=== PATIENT | male | born 1960 | race Caucasian/White ===

== ENCOUNTER 2019-12-19 04:59 | Observation (INO) ==
--- NOTE | 2019-12-13 13:11 | Anesthesiology Consultation ---
Date of Service December 13, 2019 Assessment & Plan (1) Encounter for pre-operative examination: Chart Review Chart Review: Acceptable Risk for Surgery and Patient seen in Pre Admission Testing Teaching & Discussion Pre-Anesthesia Teaching/Discussion Notes: Instructed NPO after midnight before surgery,except medications with 15 cc of water. Medication instructions provided according to the PAT guidelines. History Surgery Operation Date: 12/19/19 12:30 Proposed Procedures p Right Total Knee Arthroplasty - Aaron Gu MD Height/Weight Height: 5 ft 10 in Weight: 96.8 kg Allergies Allergy/AdvReac Type Severity Reaction Status Date / Time No Known Drug Allergies Allergy Unknown . Verified 12/12/19 10:35 Medications Home Medications Medication Instructions Recorded Confirmed Last Taken No Known Home Medications 12/12/19 12/12/19 Unknown Past Medical History Medical History DJD (degenerative joint disease) Kidney stones Obesity Osteoarthritis Exercise / Class Metabolic Activity II 4-5 Yardwork/Stairs/Walk up hill Past Surgical History Surgical History History of colonoscopy History of lithotripsy Hx of hernia repair Hx of LASIK Past Anesthesia History No Hx of Anesthesia Complications and No Family Hx of Anesthesia Complications History of PONV No Hx of PONV and No Hx of Motion Sickness Social History Smoking Status: Never smoker Do You Dip or Chew Tobacco: No (QUIT 6 MONTHS AGO) Hx Alcohol Use: Yes Alcohol type: beer and hard liquor alcohol intake frequency: a few times a month Hx Substance Use: No substance use type: does not use Review of Systems Patient denies chest pain, shortness of breath, dyspnea on exertion, cough, wheezing, palpitations. Physical Exam Vital Signs VITALS BP 146/80 P 86 TEMP 97.7 SP02 94%RA RESP 18 PHYSICAL Full neck and c-spine range of motion. Full TMJ range of motion. TMD 4 finger breaths Mallampati Score 2 Dentition: intact, crown on molar Lungs: clear throughout to auscultation Cardiac: regular rate and rhythm, no murmurs noted Spine: normal Carotid arteries: negative bruit Extremities: no edema Testing Laboratory Results 12/13/19 13:31 12/13/19 13:31 PT 10.2 Seconds (9.0-12.0) 02/26/20 13:31 INR 1.0 (0.9-1.1) 12/13/19 13:31 APTT 25.8 Seconds (21.0-31.0) 12/13/19 13:31 Blood Type A Positive 12/13/19 13:31 Antibody Screen NEGATIVE 12/13/19 13:31 *Surgeon's office made aware of low WBC* Electrocardiogram Date: 12/13/19 NSR at 80bpm. Minimal voltage criteria for LVH, may be normal variant. Chest X-Ray Date: 12/13/19 The heart is at the upper limits of normal in size. There is no failure. There is no focal pulmonary consolidation. There are no pleural effusions. There is a prominent left cardiophrenic angle fat pad. IMPRESSION: No active disease in the chest.
--- NOTE | 2019-12-13 13:52 | XRay Report ---
XR chest Pre-admission PA/Lat CLINICAL HISTORY: Preoperative chest COMPARISON STUDY: No previous studies for comparison. FINDINGS: The heart is at the upper limits of normal in size. There is no failure. There is no focal pulmonary consolidation. There are no pleural effusions. There is a prominent left cardiophrenic angl e fat pad.[ IMPRESSION: No active disease in the chest. ACT 112: Negative or not required by law. Electronically signed by: Lan Balderas M.D. 12/13/2019 1:51 PM
[2019-12-13 14:07] LABS: Basophils # (auto) 0.02 K/uL (0-0.2); Basophils % (auto) 0.5 %; Eosinophils # (auto) 0.12 K/uL (0-0.5); Eosinophils % (auto) 3.3 %; Hematocrit (blood only) 44.7 % (42-52); Immature Granulocytes # (auto) 0.01 K/uL (0.00-0.02); Immature Granulocytes % (auto) 0.3 %; Lymphocytes # (auto) 1.45 K/uL (1.2-3.4); Lymphocytes % (auto) 39.8 %; Mean Corpuscular Hemoglobin 29.5 pg (25-34); Mean Corpuscular Hgb Conc 33.6 g/dL (32-36); Mean Corpuscular Volume 87.8 fL (80-100); Mean Platelet Volume 9.9 fL (7.4-10.4); Monocytes # (auto) 0.18 K/uL (0.11-0.59); Monocytes % (auto) 4.9 %; Neutrophils # (auto) 1.86 K/uL (1.4-6.5); Neutrophils % (auto) 51.2 %; Platelet Count 183 K/uL (130-400); RDW Coefficient of Variation 13.1 % (11.5-14.5); RDW Standard Deviation 41.9 fL (36.4-46.3); Red Blood Count 5.09 M/uL (4.7-6.1); White Blood Count 3.64 K/uL (4.8-10.8)
[2019-12-13 14:09] LABS: BUN Creatinine Ratio 9.7 (10-20); Est GFR (African American) 80.6; Est GFR (Non-African American) 69.5; Potassium 3.8 mmol/L (3.5-5.1)
[2019-12-13 14:13] LABS: Partial Thromboplastin Time 25.8 Seconds (21.0-31.0); Prothrombin Time 10.2 Seconds (9.0-12.0)
--- NOTE | 2019-12-13 15:06 | Electrocardiogram Report ---
Test Reason : Blood Pressure : / mmHG Vent. Rate : 080 BPM Atrial Rate : 080 BPM P-R Int : 132 ms QRS Dur : 092 ms QT Int : 402 ms P-R-T Axes : 070 058 015 degrees QTc Int : 463 ms Normal sinus rhythm Minimal voltage criteria for LVH, may be normal variant Borderline ECG No previous ECGs available Confirmed by Rudy Jimenez ([id number]) on 12/13/2019 3:05:50 PM Referred By: Aaron Gu Confirmed By:Janusz Jimenez
[2019-12-19] MEDS ORDERED: METOCLOPRAMIDE HCL 10 MG TABLET PO SCH (06:00)
[2019-12-19] MEDS ORDERED: LR 60ML/HR IV SCH (06:00)
[2019-12-19] MEDS ORDERED: FAMOTIDINE 20 MG TAB PO SCH (06:00)
[2019-12-19] MEDS ORDERED: CEFAZOLIN 2000MG 2,000 MG/15 ML SYR IV SCH (06:00)
[2019-12-19] MEDS ORDERED: ACETAMINOPHEN 500 MG TAB PO SCH (06:00)
[2019-12-19] MEDS ORDERED: BUPIVACAINE LIPOSOME/PF 266 MG, BUPIVACAINE/EPINEPHRINE 50 ML, SODIUM CHLORIDE 0.9% 30 ... INFIL SCH (06:00)
[2019-12-19] MEDS ORDERED: GABAPENTIN 600 MG DOSE PO SCH (06:00)
[2019-12-19] MEDS ORDERED: LR 500ML BOLUS, THEN 15ML/HR IV SCH (06:00)
[2019-12-19] MEDS ORDERED: TRANEXAMIC ACID 1,000 MG **IV Intra-op IV SCH (06:00)
[2019-12-19] MEDS ORDERED: SCOPOLAMINE 1.5 MG TDSY TD SCH (06:00)
[2019-12-19] MEDS ORDERED: PROPOFOL IV EMULSION 10 MG/ML 20 ML VIAL IV ONE ×2 (06:22→08:01)
[2019-12-19] MEDS ORDERED: fentaNYL citrate 100 MCG/2 ML VIAL ONE (06:23)
[2019-12-19] MEDS ORDERED: MIDAZOLAM HCL 1 MG/ML 2ML VIAL ONE (06:23)
[2019-12-19] MEDS ORDERED: BUPIVACAINE/EPINEPHRINE 0.25% 1:200,000 30 ML VIAL ONE ×2 (06:36→06:37)
[2019-12-19] MEDS ORDERED: BUPIVACAINE 0.5 % 5 MG/1 ML PF 10ML VIAL ONE (06:36)
[2019-12-19] MEDS ORDERED: DEXAMETHASONE SOD INJ 4 MG/ML VIAL ONE (06:36)
[2019-12-19] MEDS ORDERED: BACITRACIN INJ 50,000 UNIT VIAL ONE (06:37)
[2019-12-19] MEDS ORDERED: BUPIVACAINE LIPOSOME 1.3% 266 MG/20 ML VIAL ONE (06:37)
[2019-12-19] MEDS ORDERED: SODIUM CHLORIDE 0.9% PF 50 ML VIAL ONE (06:37)
--- NOTE | 2019-12-19 06:49 | History & Physical Bridge Note ---
Date of Service December 19, 2019 History & Physical Bridge Note I have examined the patient, reviewed the History & Physical and in the interval since the performance of the History & Physical I have noted the following changes of clinical significance: no changes noted
[2019-12-19] MEDS ORDERED: ATROPINE SULFATE 0.1 MG/ML 10ML SYR IV PRN (07:16)
[2019-12-19] MEDS ORDERED: fentaNYL citrate 100 MCG/2 ML VIAL IV PRN (07:16)
[2019-12-19] MEDS ORDERED: ONDANSETRON INJ 2 MG/ML 2 ML VIAL IV PRN ×2 (07:16→09:57)
[2019-12-19] MEDS ORDERED: ePHEDrine sulfate 50 MG/ML AMP IV PRN (07:16)
--- NOTE | 2019-12-19 08:43 | Post Operative Brief Note ---
PG Immediate Post Op with CF Date of Surgery December 19, 2019 Pre & Post Diagnosis Operation Date: 12/19/19 07:00 Pre-Op Diagnosis: Right Knee Degenerative Joint Disease Post-Op Diagnosis: Right Knee Degenerative Joint Disease I identified the patient and participated in the time-out.: Yes Procedure Operation Date: 12/19/19 07:00 Actual Procedures p Right Total Knee Arthroplasty(Right) - Aaron Gu MD Surgeon Aaron Gu MD Electric Freight Car Operator Marlo, PAC Estimated Blood Loss 50 Findings Consistent with Post-Op Diagnosis Fluids 1200 cc Specimens Specimen Description: A. Right Knee Bone and Tissue Drains Tsai Catheter Anesthesia Type Spinal MAC Complications none Disposition Accompanied Patient To Recovery: No Disposition: Recovery Room
--- NOTE | 2019-12-19 08:55 | Operative Report ---
Post Operative Report Pre & Post Diagnosis Operation Date: 12/19/19 07:00 Pre-Op Diagnosis: Right Knee Degenerative Joint Disease Post-Op Diagnosis: Right Knee Degenerative Joint Disease I identified the patient and participated in the time-out.: Yes Procedure Operation Date: 12/19/19 07:00 Actual Procedures p Right Total Knee Arthroplasty(Right) - Aaron Gu MD Surgeon Aaron Gu MD Community Relations Advisor Marlo, PAC Estimated Blood Loss 50 Findings Consistent with Post-Op Diagnosis Operative findings revealed advanced right knee medial compartment DJD. He had grade 4 [id number] disease and eburnation of the medial femoral condyle medial tibial plateau. The rest knee joint was pretty well-preserved. He did have a varus deformity to his knee and a slight flexion contracture of 5 to 10 degrees. He had a moderate-sized joint effusion. Fluids 1200 cc. Specimens Right knee sent for pathology. Drains None. Anesthesia Type Spinal MAC Complications none Disposition Accompanied Patient To Recovery: No Disposition: Recovery Room Indications Patient is a 59-year-old fairly active gentleman is had about 3-year history of gradual and progressive increasing right knee pain discomfort. Is been through extensive conservative treatment which is failed over time. X-rays showed medial compartment arthritis. He had a little bit of tibiofemoral subluxation. He elected proceed with total knee arthroplasty. Description of Procedure Operative implants consisted of: 1. Biomet Vanguard size 70 right posterior by femoral component. 2. Biomet size 75 tibial tray. 3. 12 mm posterior box polyethylene insert. 4. 31 x 8 all poly-patella. Patient was taken to the operating room identified and placed on the operating table supine position protectors were properly padded. IV antibiotics arrived by anesthesia team. Spinal anesthetic and abductor canal block had been provided in the holding area. Tsai catheter was placed in sterile fashion. Right thigh tip was then placed in the right lower extremities and prepped draped in usual sterile fashion. The right leg was elevated and exsanguinated with use of an Esmarch and turns placed at 3 mmHg. An anterior approach of the right knee was then performed to longitudinal incision centered over the patella. Sharp dissection was cut through subcutaneous tissue down below the extensor mechanism. A medial parapatellar arthrotomy incision was made. Some subperiosteal dissection was carried out medially. The fat pad was resected from each patella tendon. Lateral patellofemoral ligament was released. Patella was subluxated laterally and the knee was flexed. The osteophytes were taken off the distal femur. The ACL and PCL were then released from distal femur and the tibia subluxated anteriorly. The external tibial alignment jig was then placed in the interface the tibia and adjusted 14 mm medially. Proximal tibial cut was made to remove about 2 to 3 mm of bone for the most efficient aspect medial tibial plateau. Some osteophytes were taken off medial and posterior medially. Tibia sized to a size 75. Attention drawn the femur. The distal femur was entered with a sharp drill. Intramedullary canal was suction. A right 6 degree valgus cutting guide was placed. Distal femoral cutting block was pinned in place. Distal femoral cut was made to take an additional 3 mm of bone off distal femur. The femur was then sized to a size 70. We downsized this just slightly. The AP cutting block was pinned parallel to the epicondylar axis which was 4 degrees of external rotation. The anterior cut, anterior chamfer, posterior cut, posterior chamfer cuts were made. Box cutting guide was placed in just slight lateral box cut was made. The knee was flexed. The remnants of the medial and lateral menisci were excised. The osteophytes were taken off the posterior aspect of the femur. A trial femoral component was placed but the tibial tray was pinned in maximum external rotation and the drill and stem punch were used to create defect in proximal tip for the tibial tray. Knee was then trialed and the 12 mm insert fit most appropriately. Attention drawn the patella. The patella was cleaned of all soft tissues. Patella thickness measured 24 mm in thickness was cut down to 14. Was sized to a size 31 patella. Locals were drilled for 31 patella. The lateral osteophyte is moved. Patella button was placed. Knee was taken through range of motion patella tracked nicely with no thumbs test. Attention drawn to place the permanent components. All trial components were removed. Bone plug was placed in the distal femur limit blood loss put a double batch Palacos G cement was mixed. BiomGenophen Vanguard size 70 right posterior by femoral component, size 75 tibial tray, a 12 mm posterior box polyethylene insert, and a 31 x 8 all poly-patella were then cemented in place. Knee was brought out in full extension total cement hardened. Final cement check was then performed. The pericapsular tissues were injected with total 100 cc of combination of 20 cc of Exparel, 30 cc of normal saline, 50 cc of quarter percent Marcaine with epinephrine. The wound was irrigated extensively. The patient did receive 1 g of tranexamic acid. The tourniquet was then let down for final tourniquet time 58 minutes. Hemostasis assured use electrocautery. The wounds once again irrigated. The extensor mechanism then closed with a combination 1 PDS suture #1 Vicryl suture in [id number] fashion. Extensor mechanism checked found to be intact the subcutaneous tissue then closed with 2 Dexon suture in a buried interrupted fashion the skin was closed skin lea. Leg was then cleaned dried a sterile dressing composed Xeroform, 4 x 4's, sterile cast padding, Henrique bandage were applied. Patient was then transferred to the recovery room in stable condition. Patient tolerated procedure well and there are no complications. I attest to the content of the Intraoperative Record and any orders documented therein. Any exceptions are noted below.
--- NOTE | 2019-12-19 09:08 | XRay Report ---
RIGHT KNEE 2 VIEWS History: Right total knee arthroplasty. Degenerative arthritis. Postop. FINDINGS: The patient is status post a right total knee arthroplasty. The hardware is intact. No frac ture or dislocation. Skin lea are in place. IMPRESSION: Right total knee arthroplasty. No evidence for hardware complication. ACT 112: Negative or not required by law. Electronically signed by: Jose Emery M.D. 12/19/2019 9:07 AM
--- NOTE | 2019-12-19 09:43 | Anesthesiology Progress Note ---
Date of Service December 19, 2019 Anesthesia Post Procedure Vital Signs Vital Signs: Temp Pulse Pulse Resp BP Pulse Ox 12/19/19 09:35 36.2 C L 87 14 125/77 99 12/19/19 09:25 36.2 C L 82 18 123/74 94 12/19/19 09:15 92 H 18 123/86 94 12/19/19 09:05 82 14 129/70 97 12/19/19 08:55 85 14 120/68 98 12/19/19 08:48 36.2 C L 92 H 16 115/72 95 12/19/19 05:38 36.3 C L 87 20 164/88 H 94 Transfer of Care Handoff Completed per policy Notes Mental Status: alert / awake / arousable Patient Amnestic to Procedure: Yes Nausea / Vomiting: adequately controlled Pain: adequately controlled Airway Patency, RR, SpO2: stable & adequate BP & HR: stable & adequate Hydration State: stable & adequate Neuraxial Anesthesia: was administered and sensory block is resolving Anesthetic Complications: no major complications apparent and Pt Satisfied with anesthetic care
[2019-12-19] MEDS ORDERED: HYDROmorphone INJ 0.5 MG/0.5 ML SYR IV PRN (09:57)
[2019-12-19] MEDS ORDERED: ALUMINUM/MAGNESIUM SUSP 30 ML UDC PO PRN (09:57)
[2019-12-19] MEDS ORDERED: TAMSULOSIN HCL 0.4 MG CAP PO PRN (09:57)
[2019-12-19] MEDS ORDERED: NALOXONE HCL 0.4 MG/1 ML VIAL/CARP IV PRN (09:57)
[2019-12-19] MEDS ORDERED: MAGNESIUM HYDROXIDE SUSP 30 ML UDC PO PRN (09:57)
[2019-12-19] MEDS ORDERED: OXYCODONE HCL IR 5 MG TAB (IMMEDIATE RELEASE) PO PRN (09:57)
[2019-12-19] MEDS ORDERED: METOCLOPRAMIDE HCL INJ 5 MG/ML 2 ML VIAL IV PRN (09:57)
[2019-12-19] MEDS ORDERED: bisacodyL 10 MG SUPP PR PRN (09:57)
[2019-12-19] MEDS: SODIUM CHLORIDE 0.9% 1000ML 1,000 ML IV SCH ×2 (10:19→18:15)
[2019-12-19] MEDS: MULTIVITAMIN TAB PO SCH (11:41)
[2019-12-19] MEDS: ASPIRIN 81 MG ECTAB PO SCH ×2 (11:41→21:11)
[2019-12-19] MEDS: KETOROLAC 30 MG/ML VIAL IV SCH ×3 (11:41→22:36)
[2019-12-19] MEDS: DOCUSATE SODIUM 100 MG CAP PO SCH ×2 (11:41→21:10)
[2019-12-19] MEDS: TAPENTADOL HCL ER 50 MG TABCR PO SCH ×2 (11:44→21:11)
[2019-12-19] MEDS: ACETAMINOPHEN 500 MG TAB PO SCH ×2 (14:10→21:12)
[2019-12-19] MEDS: CEFAZOLIN 2000MG 2,000 MG/15 ML SYR IV SCH ×2 (14:14→22:36)
--- NOTE | 2019-12-19 14:16 | Progress Note ---
DATE: 12/19/2019 SUBJECTIVE: 59-year-old gentleman postop from a right knee replacement. He is doing well. Really not much in the way of pain yet. No chest pain or shortness of breath. Not feeling dizzy or lightheaded. He is anxious and would like to try and get out of bed. OBJECTIVE: VITAL SIGNS: Temperature 36.4. Vital signs stable. GENERAL: Shows a pleasant, middle-aged male. He is sitting up in bed, looks pretty comfortable. LUNGS: Clear to auscultation. HEART: Regular rate and rhythm. ABDOMEN: Soft, nontender, nondistended. EXTREMITIES: Grossly neurovascularly intact except as follows: Examination of the right leg reveals the leg to be well aligned. Dressing is clean, dry, and intact. He can dorsiflex and plantarflex his foot appropriately. He is neurologically intact. X-RAYS: X-rays of the right knee from recovery room reviewed. It shows a cemented posterior stabilized total knee arthroplasty. Components looked to be in good position. No signs of problems. ASSESSMENT: 59-year-old male postop from a right knee replacement, doing well. Pain is controlled. He is neurologically intact. PLAN: 1. DVT prophylaxis including thigh-high TEDS, SCDs, and aspirin twice a day. 2. PT/OT. Weight bear as tolerated. Right total knee protocol. 3. Pain control, doing pretty well with current pain regimen. 4. IV antibiotics x24 hours. 5. Disposition: Plan to discharge to home likely with some home health once adequately recovered and medically stable.
[2019-12-19] MEDS ORDERED: TRANEXAMIC ACID / 0.7% NACL 1,000 MG/100 ML BAG IV SCH (15:00)
[2019-12-19] MEDS: CHECK SCOPOLAMINE PATCH PLACEMENT SCH (15:46)
[2019-12-19] MEDS: FERROUS GLUCONATE 324 MG TAB PO SCH (18:16)
[2019-12-19] MEDS: ASCORBIC ACID 500 MG TAB PO SCH (18:16)
[2019-12-19] MEDS ORDERED: SENNA 8.6 MG TAB PO SCH (21:00)
[2019-12-20] MEDS: CHECK SCOPOLAMINE PATCH PLACEMENT SCH ×2 (01:05→08:58)
[2019-12-20] MEDS: SODIUM CHLORIDE 0.9% 1000ML 1,000 ML IV SCH (01:25)
[2019-12-20] MEDS: KETOROLAC 30 MG/ML VIAL IV SCH ×2 (05:32→11:07)
[2019-12-20] MEDS: ACETAMINOPHEN 500 MG TAB PO SCH ×2 (05:33→13:26)
[2019-12-20 06:46] LABS: Hematocrit (blood only) 37.8 % (42-52); Hemoglobin 12.3 g/dL (14.0-18.0); Mean Corpuscular Hemoglobin 28.5 pg (25-34); Mean Corpuscular Hgb Conc 32.5 g/dL (32-36); Mean Corpuscular Volume 87.5 fL (80-100); Mean Platelet Volume 9.9 fL (7.4-10.4); Platelet Count 171 K/uL (130-400); RDW Coefficient of Variation 12.8 % (11.5-14.5); RDW Standard Deviation 41.5 fL (36.4-46.3); Red Blood Count 4.32 M/uL (4.7-6.1); White Blood Count 8.61 K/uL (4.8-10.8)
[2019-12-20 07:18] LABS: BUN Creatinine Ratio 10.2 (10-20); Calcium 8.4 mg/dl (8.5-10.1); Creatinine Clr Calc Pharmacy 79.3 ml/min; Est GFR (African American) 76.6; Est GFR (Non-African American) 66.1; Potassium 3.8 mmol/L (3.5-5.1)
[2019-12-20] MEDS: ASPIRIN 81 MG ECTAB PO SCH (08:59)
[2019-12-20] MEDS: ASCORBIC ACID 500 MG TAB PO SCH (08:59)
[2019-12-20] MEDS: DOCUSATE SODIUM 100 MG CAP PO SCH (08:59)
[2019-12-20] MEDS: MULTIVITAMIN TAB PO SCH (08:59)
[2019-12-20] MEDS: FERROUS GLUCONATE 324 MG TAB PO SCH (09:00)
[2019-12-20] MEDS: TAPENTADOL HCL ER 50 MG TABCR PO SCH (09:02)
--- NOTE | 2019-12-20 17:51 | Progress Note ---
DATE: 12/20/2019 SUBJECTIVE: A 59-year-old gentleman postop day 1 from right knee replacement. He is doing well. Denies any real significant pain. Therapy went well. He wants to go home. No chest pain or shortness of breath. Not feeling dizzy or lightheaded. OBJECTIVE: VITAL SIGNS: Temperature is 36.5. Vital signs are stable. GENERAL: Shows a pleasant, middle-aged male. He is sitting up in bed, looks comfortable. EXTREMITIES: Examination of the right leg reveals the leg to be well aligned. Dressing is clean, dry, and intact. He can dorsiflex and plantarflex his foot appropriately. He is neurologically intact. LABORATORY DATA: Hemoglobin 12.3, hematocrit 37.8. Electrolytes are stable. ASSESSMENT: A 59-year-old gentleman postoperative day 1 from right knee replacement, doing pretty well. Pain is controlled. He is neurologically intact. Wants to go home. PLAN: 1. DVT prophylaxis including thigh-high TEDs, SCDs, and aspirin twice a day. 2. PT/OT. Weight bear as tolerated. Right total knee protocol. 3. Pain control, doing pretty well with current pain regimen. 4. Disposition: Plan to discharge to home this evening with some home health and instruction on bandage changing tomorrow.
--- NOTE | 2019-12-25 19:03 | Discharge Summary ---
ADMITTING PHYSICIAN AND SURGEON: Dr. Gu. ADMITTING DIAGNOSIS: Right knee degenerative joint disease. SURGERY PERFORMED: Right total knee arthroplasty. SECONDARY DIAGNOSES: Sleep apnea, arthritis, gastroesophageal reflux disease, kidney stones. CONSULTS: None obtained. HISTORY AND PHYSICAL EXAMINATION: Well documented in the patient's chart. HOSPITAL COURSE: The patient was admitted on 12/19/2019 and underwent total knee arthroplasty, tolerated the procedure well. There were no complications. He was transferred to the PACU postoperatively and later to the orthopedic floor for further care. He was given Ancef for antibiotic prophylaxis, JARROD stockings, SCDs and aspirin for DVT prophylaxis. Hemoglobin, hematocrit and vital signs were monitored during his hospital stay and remained stable. He did not require any blood transfusions. There were no complications. By postoperative day 1, he was tolerating a regular diet, pain was controlled with oral pain medicine. He was participating in physical therapy. On postop day 1, he was discharged home. He was given printed discharge instructions as well as new prescriptions for extra strength Tylenol, aspirin and oxycodone. Continue physical therapy, weightbearing as tolerated, JARROD stockings. Follow up approximately 2 weeks postop or sooner if there are any problems or concerns.
== END 2019-12-20 15:42 | disposition home or self-care (01) ==
LOC: 3E 04:59 → ASU 04:59